=== PATIENT | female | born 1985 | race Caucasian/White ===

== ENCOUNTER → 2017-01-16 | Outpatient (CLI) | payer OTHER | LOC: HEART CORB 12:00 | DX: R07.2 Precordial pain (principal) ==

== ENCOUNTER → 2021-02-22 | Outpatient (CLI) | payer BC, OTHER | LOC: RAD 10:00 | DX: S73.102A Unspecified sprain of left hip, initial encounter (principal) | CPT/HCPCS: 73722; A9577; Q9962 ==